=== PATIENT | female | born 1985 | race Caucasian/White ===

== ENCOUNTER 2017-05-21 16:41 | Emergency (ER) | payer OTHER ==
[~2017-05-21] VITALS: Ht 170.2 cm; Wt 89.0 kg
[~2017-05-21 16:41] MED LIST: CEPH-460 PO; ETHI1TAB3 PO
[2017-05-21 16:46] VITALS: BP 116/72; PULSE 132; RESP 20; TEMP 102.5; O2SAT 99
[2017-05-21] MEDS ORDERED: SODIUM CHLOR 0.9% 1000 ML INJ 1,000 ML IV ONE ×2 (16:55)
[2017-05-21] MEDS ORDERED: SODIUM CHLOR 0.9% 1000 ML INJ 400 ML IV ONE (16:55)
--- NOTE | 2017-05-21 16:57 | PD ---
HPI Chief Complaint: Skin Problem Time Seen by Provider: 16:55 Travel History International Travel<30 days: No Contact w/Intl Traveler<30days: No Traveled to known affect area: No History of Present Illness HPI 31-year-old female with no significant medical history presents to the emergency department for evaluation of worsening abscess of the right buttock. Patient was seen and evaluated Monday, 5 days ago and started on Keflex by her primary care provider. I&D was not completed at that time. Patient states she has follow-up in 3 days but the area is getting worse and she has begun having fevers and feeling chilled. She tried to wait for her follow-up, but states that it is really painful, rates the pain a 10 out of 10, constant, throbbing. It is difficult to sit on her buttocks stage this. Denies any rectal pain or difficulty with bowel movements. She has no other symptoms to report. PFSH Past Medical History ?: Not LMP: 03/20/17 Past Surgical History Tonsillectomy: Yes Social History Alcohol Use: Yes (OCC WEEKENDS) Tobacco Use: No Substance Use: No Allergies-Medications (Allergen,Severity, Reaction): Coded Allergies: No Known Allergies (Verified , 05/17/17) Reported Meds & Prescriptions Reported Meds & Active Scripts Active Lortab (Hydrocodone-Acetaminophen) 5-325 Mg Tab 1 Tab PO Q6H PRN Ibuprofen 800 Mg Tab 800 Mg PO Q8H PRN Clindamycin (Clindamycin HCl) 300 Mg Cap 300 Mg PO Q6H 10 Days Keflex (Cephalexin) 500 Mg Cap 500 Mg PO Q8H Catherine (Drospirenone-Ethinyl Estradiol) 3-0.02 Mg Tab 1 Tab PO DAILY Start after your period Review of Systems Except as stated in HPI: all other systems reviewed are Neg Physical Exam Narrative GENERAL: Well-nourished male patient, no acute distress SKIN: Focused skin assessment warm/dry. 15 cm in diameter area of induration with associated erythema on the left buttock just lateral to the gluteal cleft. There is no fluctuation and no pointed drainage. HEAD: Atraumatic. Normocephalic. EYES: Pupils equal and round. No scleral icterus. No injection or drainage. ENT: No nasal bleeding or discharge. Mucous membranes pink and moist. NECK: Trachea midline. No JVD. CARDIOVASCULAR: Regular rate and rhythm. No murmur appreciated. RESPIRATORY: No accessory muscle use. Clear to auscultation. Breath sounds equal bilaterally. GASTROINTESTINAL: Abdomen soft, non-tender, nondistended. Hepatic and splenic margins not palpable. MUSCULOSKELETAL: No obvious deformities. No clubbing. No cyanosis. No edema. NEUROLOGICAL: Awake and alert. No obvious cranial nerve deficits. Motor grossly within normal limits. Normal speech. PSYCHIATRIC: Appropriate mood and affect; insight and judgment normal. Data Data Last Documented VS Vital Signs Date Time Temp Pulse Resp B/P (MAP) Pulse Ox O2 Delivery O2 Flow Rate FiO2 05/21/17 19:31 78 18 100/55 (70) 98 05/21/17 18:57 99.8 Room Air Orders Orders Electrocardiogram (05/21/17 16:55) Complete Blood Count With Diff (05/21/17 16:55) Comprehensive Metabolic Panel (05/21/17 16:55) Lactic Acid Sepsis Protocol (05/21/17 16:55) Urinalysis - C+S If Indicated (05/21/17 16:55) Blood Culture (05/21/17 16:55) Wound Culture And Gram Stain (05/21/17 16:55) Blood Glucose (05/21/17 16:55) Ecg Monitoring (05/21/17 16:55) Iv Access Insert/Monitor (05/21/17 16:55) Oximetry (05/21/17 16:55) Oxygen Administration (05/21/17 16:55) Acetaminophen (Tylenol) (05/21/17 17:00) Sodium Chlor 0.9% 1000 Ml Inj (Ns 1000 M (05/21/17 16:55) Sodium Chlor 0.9% 1000 Ml Inj (Ns 1000 M (05/21/17 16:55) Sodium Chlor 0.9% 1000 Ml Inj (Ns 1000 M (05/21/17 16:55) Ketorolac Inj (Toradol Inj) (05/21/17 17:00) Lidocai-Epi 2%-1:100,000 Inj (Xylocaine- (05/21/17 17:00) Lidocaine 1% Inj (50 Ml) (Xylocaine 1% I (05/21/17 17:00) Piperacil-Tazo 4.5 Gm Premix (Zosyn 4.5 (05/21/17 17:34) Vancomycin Inj (Vancomycin Inj) (05/21/17 17:34) Morphine Inj (Morphine Inj) (05/21/17 18:45) Ondansetron Inj (Zofran Inj) (05/21/17 18:45) Labs Laboratory Tests Test 05/21/17 17:10 White Blood Count 16.8 TH/MM3 Red Blood Count 4.11 MIL/MM3 Hemoglobin 12.3 GM/DL Hematocrit 36.2 % Mean Corpuscular Volume 88.0 FL Mean Corpuscular Hemoglobin 30.0 PG Mean Corpuscular Hemoglobin Concent 34.1 % Red Cell Distribution Width 12.8 % Platelet Count 299 TH/MM3 Mean Platelet Volume 8.1 FL Neutrophils (%) (Auto) 80.7 % Lymphocytes (%) (Auto) 7.9 % Monocytes (%) (Auto) 10.7 % Eosinophils (%) (Auto) 0.2 % Basophils (%) (Auto) 0.5 % Neutrophils # (Auto) 13.6 TH/MM3 Lymphocytes # (Auto) 1.3 TH/MM3 Monocytes # (Auto) 1.8 TH/MM3 Eosinophils # (Auto) 0.0 TH/MM3 Basophils # (Auto) 0.1 TH/MM3 CBC Comment DIFF FINAL Differential Comment Urine Color YELLOW Urine Turbidity CLEAR Urine pH 7.0 Urine Specific [place] 1.016 Urine Protein NEG mg/dL Urine Glucose (UA) NEG mg/dL Urine Ketones NEG mg/dL Urine Occult Blood NEG Urine Nitrite NEG Urine Bilirubin NEG Urine Urobilinogen LESS THAN 2.0 MG/DL Urine Leukocyte Esterase NEG Urine RBC LESS THAN 1 /hpf Urine WBC 1 /hpf Urine Squamous Epithelial Cells <1 /hpf Urine Mucus FEW /lpf Microscopic Urinalysis Comment CATH-CULT NOT IND Blood Urea Nitrogen 9 MG/DL Creatinine 0.82 MG/DL Random Glucose 118 MG/DL Total Protein 7.8 GM/DL Albumin 3.2 GM/DL Calcium Level 8.4 MG/DL Alkaline Phosphatase 84 U/L Aspartate Amino Transf (AST/SGOT) 15 U/L Alanine Aminotransferase (ALT/SGPT) 26 U/L Total Bilirubin 0.4 MG/DL Sodium Level 135 MEQ/L Potassium Level 3.8 MEQ/L Chloride Level 103 MEQ/L Carbon Dioxide Level 25.8 MEQ/L Anion Gap 6 MEQ/L Estimat Glomerular Filtration Rate 82 ML/MIN Lactic Acid Level 1.4 mmol/L MDM Medical Decision Making Medical Screen Exam Complete: Yes Emergency Medical Condition: Yes Medical Record Reviewed: Yes Differential Diagnosis Cellulitis versus abscess versus erysipelas versus folliculitis Narrative Course 31-year-old female presents to emergency department for evaluation of a left buttock abscess with associated fever. Patient has a large area of induration. Ultrasound is applied and a pocket of fluid collection is identified. The areas prepped and I and D complete. Cultures obtained. Patient is given IV vancomycin and Zosyn here as she did initially meet sepsis criteria. She was also given IV for normal saline fluid bolus resuscitation. Laboratory Tests Test 05/21/17 17:10 White Blood Count 16.8 TH/MM3 Red Blood Count 4.11 MIL/MM3 Hemoglobin 12.3 GM/DL Hematocrit 36.2 % Mean Corpuscular Volume 88.0 FL Mean Corpuscular Hemoglobin 30.0 PG Mean Corpuscular Hemoglobin Concent 34.1 % Red Cell Distribution Width 12.8 % Platelet Count 299 TH/MM3 Mean Platelet Volume 8.1 FL Neutrophils (%) (Auto) 80.7 % Lymphocytes (%) (Auto) 7.9 % Monocytes (%) (Auto) 10.7 % Eosinophils (%) (Auto) 0.2 % Basophils (%) (Auto) 0.5 % Neutrophils # (Auto) 13.6 TH/MM3 Lymphocytes # (Auto) 1.3 TH/MM3 Monocytes # (Auto) 1.8 TH/MM3 Eosinophils # (Auto) 0.0 TH/MM3 Basophils # (Auto) 0.1 TH/MM3 CBC Comment DIFF FINAL Differential Comment Urine Color YELLOW Urine Turbidity CLEAR Urine pH 7.0 Urine Specific [place] 1.016 Urine Protein NEG mg/dL Urine Glucose (UA) NEG mg/dL Urine Ketones NEG mg/dL Urine Occult Blood NEG Urine Nitrite NEG Urine Bilirubin NEG Urine Urobilinogen LESS THAN 2.0 MG/DL Urine Leukocyte Esterase NEG Urine RBC LESS THAN 1 /hpf Urine WBC 1 /hpf Urine Squamous Epithelial Cells <1 /hpf Urine Mucus FEW /lpf Microscopic Urinalysis Comment CATH-CULT NOT IND Blood Urea Nitrogen 9 MG/DL Creatinine 0.82 MG/DL Random Glucose 118 MG/DL Total Protein 7.8 GM/DL Albumin 3.2 GM/DL Calcium Level 8.4 MG/DL Alkaline Phosphatase 84 U/L Aspartate Amino Transf (AST/SGOT) 15 U/L Alanine Aminotransferase (ALT/SGPT) 26 U/L Total Bilirubin 0.4 MG/DL Sodium Level 135 MEQ/L Potassium Level 3.8 MEQ/L Chloride Level 103 MEQ/L Carbon Dioxide Level 25.8 MEQ/L Anion Gap 6 MEQ/L Estimat Glomerular Filtration Rate 82 ML/MIN Lactic Acid Level 1.4 mmol/L Patient tolerated the I&D well. I will start her on clindamycin by mouth. This is filled in the emergency department. The patient is also given additional pain control. She'll be discharged to follow-up with her primary care provider in 3 days. She agrees to return immediately with any acute worsening of symptoms. Sepsis Criteria SIRS Criteria (2 or more): Temp > 100.9 or < 96.8, WBC > 37725, < 4000 or > 10 % bands Sepsis Criteria (SIRS+source): Infect source susp/known Diagnosis Primary Impression: Cellulitis and abscess of buttock Additional Impressions: Sepsis Qualified Codes: A41.9 - Sepsis, unspecified organism Abscess of left buttock Referrals: Primary Care Physician Patient Instructions: Abscess Incision and Drainage (DC), General Instructions Additional Instructions: Warm compresses to the affected area Keep the area clean and dry Follow-up with a primary care provider Packing is to be removed in 2-3 days. Keep your appointment with your primary care provider on Monday and they can remove and reassess need for repacking at that time Return immediately to the emergency department with any acute worsening of symptoms. Med/Other Pt SpecificInfo: Prescription(s) given Scripts Hydrocodone-Acetaminophen (Lortab) 5-325 Mg Tab 1 TAB PO Q6H Y for PAIN GREATER THAN 6, #6 TAB 0 Refills Prov: Mitali Diaz 05/21/17 Ibuprofen (Ibuprofen) 800 Mg Tab 800 MG PO Q8H Y for Pain/Inflammation, #30 TAB 0 Refills Prov: Mitali Diaz 05/21/17 Clindamycin (Clindamycin) 300 Mg Cap 300 MG PO Q6H for Infection for 10 Days, CAP 0 Refills Prov: Mitali Diaz 05/21/17 Disposition: 01 DISCHARGE HOME Condition: Stable Mitali Diaz May 21, 2017 16:57
[2017-05-21] MEDS ORDERED: ACETAMINOPHEN 325 MG TAB PO ONE (17:00)
[2017-05-21] MEDS ORDERED: KETOROLAC TROMETHAMINE 30 MG/ML (IVP) VIAL IV PUSH ONE (17:00)
[2017-05-21] MEDS ORDERED: LIDOCAINE HCL 1% 50 ML VIAL ONE (17:00)
[2017-05-21] MEDS ORDERED: LIDOCAINE 2%/EPINEPHrine 1:100,000 30ML MDV INFIL ONE (17:00)
[2017-05-21 17:16] VITALS: O2SAT 99
[2017-05-21 17:33] LABS: AUTOMATED NEUTROPHIL # 13.6 TH/MM3 (1.8-7.7); BASOPHIL # 0.1 TH/MM3 (0-0.2); BASOPHIL % 0.5 % (0.0-2.0); EOSINOPHIL % 0.2 % (0.0-4.0); HEMATOCRIT 36.2 % (35.0-46.0); HEMO FLAGS DIFF FINAL; LYMPH % 7.9 % (9.0-44.0); LYMPHOCYTE # 1.3 TH/MM3 (1.0-4.8); MEAN CORPUSCULAR HGB CONC 34.1 % (32.0-36.0); MONO % 10.7 % (0.0-8.0); NEUT % 80.7 % (16.0-70.0); PLATELET COUNT 299 TH/MM3 (150-450); RED BLOOD COUNT 4.11 MIL/MM3 (4.00-5.30); RED CELL DISTRIBUTION WIDTH 12.8 % (11.6-17.2); WHITE BLOOD COUNT 16.8 TH/MM3 (4.0-11.0)
[2017-05-21] MEDS ORDERED: VANCOMYCIN INJ 1,000 MG in SODIUM CHLOR 0.9% 250 ML INJ 250 ML IV STA (17:34)
[2017-05-21] MEDS ORDERED: PIPERACIL-TAZO 4.5 GM PREMIX 100 ML IV STA (17:34)
[2017-05-21 17:39] LABS: BLOOD, URINE NEG (NEG); COMMENT (UR) CATH-CULT NOT IND; CULTURE IF INDICATED CATH CULTURE NOT IND; GLUCOSE,URINE NEG (NEG); KETONE, URINE NEG (NEG); MUCUS URINE FEW /lpf (OCC); NITRITE,URINE NEG (NEG); SQUAMOUS EPITHELIAL CELL URINE <1 /hpf (0-5); URINE COLOR YELLOW (YELLW/STRAW)
[2017-05-21 17:40] VITALS: BP 122/63; PULSE 93; RESP 20; O2SAT 97
[2017-05-21 18:00] LABS: ALT (GPT) 26 U/L (10-53); ANION GAP 6 MEQ/L (5-15); AST (GOT) 15 U/L (15-37); BICARBONATE 25.8 MEQ/L (21.0-32.0); BLOOD UREA NITROGEN 9 MG/DL (7-18); CHLORIDE 103 MEQ/L (98-107); GLOMERULAR FILTRATION RATE 82 ML/MIN (>89); POTASSIUM 3.8 MEQ/L (3.5-5.1); SODIUM (NA) 135 MEQ/L (136-145)
[2017-05-21 18:02] LABS: ALKALINE PHOSPHATASE 84 U/L (45-117); TOTAL BILIRUBIN ADULT 0.4 MG/DL (0.2-1.0)
[2017-05-21] MEDS ORDERED: HYDR-3533 PO (18:40)
[2017-05-21] MEDS ORDERED: CLIN1CAP6 PO (18:40)
[2017-05-21] MEDS ORDERED: IBUP800T23 PO (18:40)
[2017-05-21] MEDS ORDERED: ONDANSETRON HCL 4 MG/2 ML VIAL IV PUSH ONE (18:45)
[2017-05-21] MEDS ORDERED: MORPHINE SULFATE 4 MG/ML INJ IV PUSH ONE (18:45)
[2017-05-21 18:57] VITALS: BP 112/56; PULSE 72; RESP 18; TEMP 99.8; O2SAT 98
[2017-05-21 19:31] VITALS: BP 100/55
--- NOTE | 2017-05-22 11:14 | EKG ---
Date Performed: 05/21/2017 Time Performed: 17:19:43 PTAGE: 31 years EKG: Sinus rhythm MODERATE T-WAVE ABNORMALITY, CONSIDER ANTERIOR ISCHEMIA ABNORMAL ECG NO PREVIOUS TRACING DOCTOR: Jamila Robledo Interpretating Date/Time 05/22/2017 11:12:09
[2017-05-24] MEDS ORDERED: CEFT1INJ IM (09:37)
[2017-05-24] MEDS ORDERED: AMOX875T PO (09:38)
[2017-05-29] MEDS ORDERED: DIFL150T PO (09:08)
== END 2017-05-21 19:44 | disposition home or self-care (01) ==
LOC: NEPD 16:41
DX: L02.31 Cutaneous abscess of buttock (principal); L03.317 Cellulitis of buttock; B95.4 Other streptococcus as the cause of diseases classified elsewhere; A41.9 Sepsis, unspecified organism
CPT/HCPCS: 10061; 80053; 81001; 83605; 85025; 86403; 87040; 87070; 93005; 96365; 96367; 96375; 99284; J1885; J2270; J2405; J2543; J3370; J7030; J7050; 87205